=== PATIENT | female | born 1990 | race Caucasian/White ===

== ENCOUNTER 2017-01-07 23:32 | Emergency (ER) | payer SELFPAY ==
[2017-01-08] MEDS ORDERED: HALOPERIDOL LACTATE 5 MG/ML VIAL IM ONE (01:24)
[2017-01-08] MEDS ORDERED: 0.9 % SODIUM CHLORIDE 1,000 ML IV SCH (01:30)
[2017-01-08] MEDS ORDERED: BUDESONIDE 0.5MG/2ML AMPUL.NEB NEB ONE (01:54)
[2017-01-08] MEDS ORDERED: 0.9 % SODIUM CHLORIDE 1,000 ML IV ONE (01:54)
[2017-01-08] MEDS ORDERED: BUDESONIDE 0.5MG/2ML AMPUL.NEB NEB SCH (02:00)
[2017-01-08 02:03] LABS: BASOPHILS % 0.4 (0.0-1.5); EOSINOPHILS % 0.7 % (0.0-6.8); MEAN CORPUSCULAR HEMOGLOBIN 29.2 pg (28.0-34.0); MEAN CORPUSCULAR VOLUME 87.5 fl (80.0-100.0); MONOCYTES % 2.8 % (0.0-11.0); NEUTROPHILS # 3.8 # k/uL (1.4-7.7)
[2017-01-08 02:15] LABS: eGFR (African) > 60; eGFR (Non-African) > 60
--- NOTE | 2017-01-08 05:04 | ED Physician Documentation ---
General Adult - HISTORIAN Historian: patient - HPI Stated Complaint: heroin withdrawl Chief Complaint: General Adult Additional Information: last shot up fentanyl yesterday afternoon then took a random Suboxone and immediately went into withdrawl Onset: days ago (1) Timing: still present Severity: moderate Modifying Factors: none Context: as above Further Comments: no - ROS CONST: sweating EYES/ENT: none CVS/RESP: shortness of breath (perceived cannot breathe) GI/: nausea MS/SKIN/LYMPH: other (generalized pain) NEURO/PSYCH: tingling, numbness - PAST HX Past History: asthma, COPD Other History: none Surgeries/Procedures: BTL, other (t and a) Immunizations: referred to PCP Allergies/Adverse Reactions: Allergies Allergy/AdvReac Type Severity Reaction Status Date / Time No Known Allergies Allergy Verified 01/08/17 01:10 Home Medications: Ambulatory Orders Medication Instructions Recorded NK [NK] 01/08/17 - SOCIAL HX Smoking History: cigarettes Alcohol Use: none Drug Use: heroin, other (fentanyl) - FAMILY HX Family History: Yes (moother just overdosed) - VITAL SIGNS Vital Signs: Vital Signs Temp Pulse Resp BP Pulse Ox 98.2 F 93 H 22 119/71 98 01/07/17 23:33 01/07/17 23:33 01/07/17 23:33 01/07/17 23:33 01/07/17 23:33 - REVIEWED ASSESSMENTS Nursing Assessment Reviewed: Yes Vitals Reviewed: Yes Progress - Results/Orders Results/Orders: cbc, cmp, ua, cxr ordered - Progress Progress: pt. given pulmicort tx, reassured, given 10 mg Haldol im with resolution of symptoms Critical Care Note - Critical Care Note Total Time (mins): 0 ED Results Lab/Radiology - Lab Results Lab Results: Lab Results 01/08/17 01/08/17 01:53 01:53 WBC 5.70 K/ul K/ul (4.00-12.00) RBC 4.10 M/ul M/ul (3.90-5.20) Hgb 12.0 g/dL g/dL (12.0-16.0) Hct 35.9 % % (34.5-46.5) MCV 87.5 fl fl (80.0-100.0) MCH 29.2 pg pg (28.0-34.0) MCHC 33.4 g/dL g/dL (30.0-36.0) RDW 13.6 % % (11.3-14.3) Plt Count 336 K/mm3 K/mm3 (130-400) Neut % (Auto) 66.4 % % (39.0-79.0) Lymph % (Auto) 28.8 % % (16.0-50.0) Lamar % (Auto) 2.8 % % (0.0-11.0) Eos % (Auto) 0.7 % % (0.0-6.8) Baso % (Auto) 0.4 (0.0-1.5) Neut # 3.8 # k/uL # k/uL (1.4-7.7) Lymph # 1.6 # k/uL # k/uL (0.6-4.0) Lamar # 0.2 # k/uL # k/uL (0.0-0.9) Eos # 0.0 # k/uL # k/uL (0.0-0.6) Baso # 0.0 # k/uL # k/uL (0.0-0.5) Reactive Lymphs % 1.0 % % (0.0-5.0) Reactive Lymphs # 0.0 # k/uL # k/uL (0.0-0.8) Sodium 142 mmol/L mmol/L (136-145) Potassium 3.8 mmol/L mmol/L (3.5-5.0) Chloride 109 mmol/L mmol/L (98-110) Carbon Dioxide 33 mmol/L H mmol/L (20-32) BUN 8 mg/dL L mg/dL (10-26) Creatinine 0.5 mg/dL mg/dL (0.4-1.5) Estimated Creat Clear 141 Est GFR ( Amer) > 60 (60 - ) Est GFR (Non-Af Amer) > 60 (60 - ) Glucose 115 mg/dL H mg/dL (70-99) Calcium 9.6 mg/dL mg/dL (8.5-10.5) Total Bilirubin 0.3 mg/dL mg/dL (0.2-1.2) AST 33 U/L U/L (0-41) ALT 44 U/L U/L (0-45) Alkaline Phosphatase 53 U/L U/L (46-116) Total Protein 7.4 g/dL g/dL (6.0-8.5) Albumin 4.1 g/dL g/dL (3.0-5.5) - Radiology Radiology Impressions: cxr neg - Orders Orders: ED Orders Category Date Time Status Saline Lock [Remove IV/Saline Lock] 1T Care 01/08/17 01:28 Active CHEST 1 VIEW [RAD] Routine Exams 01/08/17 Taken CBC/PLATELET/DIFF Routine Lab 01/08/17 01:53 Completed CMP Routine Lab 01/08/17 01:53 Completed HCG [URINE HCG] Routine Lab 01/08/17 02:35 Ordered URINALYSIS Routine Lab 01/08/17 Ordered 0.9 % Sodium Chloride [Normal Saline] 1,000 ml Med 01/08/17 01:30 Ordered IV .Q1H Budesonide [Pulmicort] Med 01/08/17 02:00 Ordered 0.5 mg NEB BID Haloperidol Lactate [Haldol] Med 01/08/17 01:24 Discontinued 10 mg IM NOW ONE General Adult Physical Exam - PHYSICAL EXAM GENERAL APPEARANCE: moderate distress EENT: eye inspection normal, ENT inspection normal, pharynx normal, no signs of dehydration, KINGS, no nystagmus, TM's nml NECK: normal inspection, thyroid normal, supple RESPIRATORY: no resp distress, chest non-tender, breath sounds normal CVS: reg rate & rhythm, heart sounds normal, equal pulses, no murmur ABDOMEN: soft, no organomegaly, normal bowel sounds, no abdominal bruit, no distension, tenderness (general) BACK: normal inspection, no CVA tenderness SKIN: warm/dry, normal color, diaphoresis EXTREMITIES: non-tender, normal range of motion NEURO: oriented X3, CN's nml as tested, motor nml, sensation nml, other ( akesthetic) Discharge Clincal Impression: Acute drug withdrawal syndrome Qualifiers: Complication of substance-induced condition: uncomplicated Qualified Code(s): F19.230 - Other psychoactive substance dependence with withdrawal, uncomplicated Referrals: Primary Doctor,No [Primary Care Provider] - 2 Days Home Medications: Ambulatory Orders NK [NK] 01/08/17 Comments: discharged in stable condition to care of aunt with script for haldol 5 mg p.o. tid x 3 days. Condition: Stable Disposition: 01 HOME, SELF-CARE Decision to Admit: NO Decision Time: 04:00
--- NOTE | 2017-01-08 05:37 | Diagnostic Imaging Report ---
EVA FULLER~ [facility] [id number] [address] ~ ~ ~ ~ Report Submission Date: January 08, 2017 1:44:38 AM CDT Patient ~ Study Name: BLANQUITA ROSSI ~ Date: January 08, 2017 1:31:43 AM CDT ~ Modality Type: CR Gender: F ~ Description: CHEST : 86 ~ Institution: [facility] Physician: EVA FULLER ~ ~ ~ ~ Ap portable upright radiographs of the chest Clinical history: dyspnea an os 10 Technique: anterior /posterior portable upright Findings: The lung singh are clear. The heart and mediastinal structures are normal. The bony thorax is unremarkable. No pneumothorax or pleural effusion is seen. Impression: No acute pulmonary disease as of the ~ Electronically signed on January 08, 2017 1:44:38 AM CDT by: Rodrigo RODRIGEZ
[2017-01-08 05:49] LABS: APPEARANCE,URINE CLEAR (CLEAR); COLOR,URINE YELLOW (YELLOW); OCCULT BLOOD,URINE NEGATIVE (NEGATIVE); PH URINE 7.5 (5.0 - 8.0); UROBILINOGEN URINE 0.2 Eu (0.2-1.0)
[2017-01-08 06:37] VITALS: BP 133/70
== END 2017-01-08 02:37 | disposition home or self-care (01) ==
LOC: ED 23:32
DX: F19.230 Other psychoactive substance dependence with withdrawal, uncomplicated (principal); F17.210 Nicotine dependence, cigarettes, uncomplicated
CPT/HCPCS: 71010; 80053; 81002; 85025; J1630; J7030; J7626; 96361; 96372; 99283; S1016